=== PATIENT | female | born 1955 | race Caucasian/White ===

== ENCOUNTER → 2020-12-04 07:48 | Outpatient (CLI) | payer MEDICARE, BC ==
--- NOTE | 2020-12-05 09:24 | EC ---
PATIENT:AMAURY CARTER DATE OF SERVICE: 12/04/20 SEX: F MEDICAL RECORD: [id number] DATE OF : [birth year] LOCATION:D[facility] AGE OF PATIENT: 65 ADMISSION DATE: 12/04/20 REFERRING PHYSICIAN: INTERPRETING PHYSICIAN: VIRGILIO ALVARADO MD ECHOCARDIOGRAM REPORT ECHO CHARGES 4 ECHO COMPLETE Date: 12/04/20 CLINICAL DIAGNOSIS: HEART MURMUR ECHOCARDIOGRAPHIC MEASUREMENTS (adult normal given) AC root (d.<3.7cm) 3.6 cm LV Septum d (<1.2 cm> 1.3 cm Valve Excursion 1.7 cm LV Septum (systole) 1.5 cm Left Atria (s.<4.0cm> 4.7 cm LVPW d(<1.2cm) 1.6 cm RV (d.<2.3cm) 4.7 cm LVPW (sytole) 1.7 cm LV diastole(<5.6CM) 7.6 cm MV E-F(>70mm/sec) cm LV systole 6.6 cm LVOT Diameter 1.9 cm MV exc.(>10mm) 1.4 cm Est.ejection fraction (50-75%) % DOPPLER: LVIT cm/sec A 37.0 cm/sec E 91.0 cm/sec LA cm/sec RVSP 51 mmHg LVOT 78 cm/sec AOP1/2T 915 m/s Asc. Ao 133 cm/sec RVOT 60 cm/sec RA cm/sec PA 91 cm/sec AV Gradient Peak 7.07 mmHg AV Mean 3.37 mmHg AV Area 1.7 cm MV Gradient Peak 5.34 mmHg MV Mean 1.74 mmHg MV Area cm COMMENTS: Autocad Technician: 2 TEVIN AGGARWAL Protection Mgr: 3 Dr. Clarke TAPE# PACS Pericardial Effusion N DATE OF SERVICE: Adequate 2D, color flow imaging, spectral Doppler, and M-Mode. FINDINGS: LVH is present. LV internal dimension is dilated. LV is severely globally hypokinetic with reduced EF, estimated EF 15%. Aortic valve sclerosed without stenosis by Doppler interrogation. Mild AI is noted as well. Left atrium is dilated at 4.7 cm. Mitral valve shows no prolapse. Moderate MR. Right-sided chamber is grossly normal. Moderate TR. ECHOCARDIOGRAM REPORT [id number] AMAURY CARTER TRANSINT:[id number] Voice Confirmation ID: [id number] DOCUMENT ID: [id number] VIRGILIO ALVARADO MD at 0924 CC: [id number] DICTATION DATE: 12/04/201699 LEAD OXIDE MILL TENDER: 12/04/20 1748 DEP CLI 12/04/20 [place] [id number] [place] [id number]
--- NOTE | 2020-12-05 09:25 | ST ---
PATIENT:AMAURY CARTER MEDICAL RECORD: [id number] SEX: F LOCATION:[facility] ORDER #: ADMISSION DATE: 12/04/20 AGE OF PATIENT: 65 REFERRING PHYSICIAN: INTERPRETING PHYSICIAN: VIRGILIO ALVARADO MD DATE OF SERVICE: 12/04/2020 NUCLEAR STRESS TEST GATED: Gated is abnormal with decreased thickening in a global fashion with more marked anterior basically akinesis with reduced EF of 13%. SPECT IMAGING: Short axis view shows an extensive fixed defect from the mid anterior wall down to the anterior apex. There is a reversible defect from the inferior base down to the inferior apex. Horizontal axis: Horizontal axis confirms an extensive anterior defect from mid anterior wall down the anterior apex as well as reversible defect from the inferior base down the mid inferior wall involving the inferior apex. Vertical axis: Vertical axis shows a good uptake along the lateral septum. FINAL IMPRESSION: 1. Abnormal gated with abnormal wall motion, reduced EF 13%. 2. Abnormal SPECT imaging with a fixed anterior defect as well as reversible defect along the inferior wall. FINAL IMPRESSION: This scan is consistent with severe ischemic cardiomyopathy. We would recommend diagnostic angiography at this point. TRANSINT:[id number] Voice Confirmation ID: [id number] DOCUMENT ID: [id number] VIRGILIO ALVARADO MD at 0925 CC: [id number] DICTATION DATE: 12/04/20 165 PUNCHBOARD FILLING MACHINE OPERATOR: 12/05/20 0707 [facility] CLI 12/04/20 [place] [id number] [place] [address]
== END | disposition home or self-care (01) ==
LOC: D.HCCECHO 07:48
PROVIDERS: ATTEND Internal Medicine Interventional Cardiology
DX: R01.1 Cardiac murmur, unspecified (principal); I20.9 Angina pectoris, unspecified

== ENCOUNTER 2020-12-11 11:22 | Day surgery (SDC) | payer MEDICARE, BC ==
[~2020-12-11] VITALS: Ht 162.6 cm; Wt 100.5 kg
--- NOTE | ~2020-12-11 | HEMODYNAMI ---
PATIENT:AMAURY CARTER MEDICAL RECORD: [id number] : 51 LOCATION:[facility] ADMISSION DATE: 12/11/20 Generatedon:113:18 Patient name: AMAURY CARTER Patient #: [id number] SSN: : 1955 Date of study: 12/11/2020 Page: Of Hemodynamic Procedure Report Patient Data Patient Demographics Procedure consent was obtained First Name: AMAURY Gender: Female Last Name: RAUL : 1955 Patient #: [id number] Age: 65 year(s) Race: Unknown Additional ID: [id number] Contact details Address: [address] [place] [address] State: [place] City: [facility] Zip code: [address] Past Medical History Performed procedures and imaging results Date Procedure Procedure Results Comments Stress testing Positive->Intermediate with SPECT MPI risk Allergies Allergen Reaction Date Comments Reported Other allergy 12/11/2020 ADHESIVE TAPE, CLINDAMYCIN, ROCEPHIN, SILK Admission Admission Data Admission Date: 12/11/2020 Admission Time: 11:22 Arrival Date: 12/11/2020 Arrival Time: 0:00 Admit Source: Other Height (in.): 63.78 BSA: 2.03 (m2) Height (cm.): 162 BMI: 38.1 (kg/m2) Weight (lbs.): 220.46 Weight (kg.): 100 Lab Results Lab Result Date: 12/11/2020 Lab Result Time: 0:00 Biochemistry Name Units Result Min Max BUN mg/dl 34 --(----)-* 7 18 Creatinine mg/dl 1.3 --(---*)-- 0.6 1.3 eGFR ml/min 43 *-(----)-- 90 120 NONAFRICAN CBC Name Units Result Min Max Hematocrit % 40.7 -*(----)-- 42 54 Hemoglobin g/dl 13.3 -*(----)-- 13.5 17.5 Procedure Procedure Types Cath Procedure Diagnostic Procedure [facility] w/Coronaries Procedure Description Procedure Date Procedure Date: 12/11/2020 Procedure Start Time: 13:06 Procedure End Time: 13:16 Procedure Staff Name Function Steve Hatfield MD Performing Physician Cherelle Lopez RT Monitor Mica Serrano, RN Nurse Les Hernandez RT Scrub Procedure Data Cath Procedure Fluoroscopy Diagnostic fluoroscopy Total fluoroscopy Time: 1.1 time: 1.1 min min Diagnostic fluoroscopy Total fluoroscopy dose: 480 dose: 480 mGy mGy Contrast Material Contrast Material Type Amount (ml) Isovue 300 55 Entry Location Entry Primary Successful Side Size Upsize Upsize Entry Closure Succes sful Closure Location (Fr) 1 (Fr) 2 (Fr) Remarks Device Remarks Femoral Right 5 Fr Exoseal artery Estimated blood loss: 5 ml Diagnostic catheters Device Type Used For End Catheter Placement MULTIPACK JL 4.0 5Fr Procedure catheter MULTIPACK 3DRC 5Fr Procedure catheter MULTIPACK Pigtail 5 Fr Procedure catheter Procedure Complications No complications Procedure Medications Medication Administration Route Dosage Oxygen etCO2 Nasal cannula 2 l/min Heparin Flush Bag added to field 2 bags (1000units/500ml NS) Lidocaine 2% 0.9% NaCl I.V. 100 ml/hr Fentanyl I.V. 50 mcg Versed I.V. 1 mg Hemodynamics Rest BSA: 2.03 (m2) O2 Consumption: Estimated: 194.21 (ml/min) O2 Consumption indexed : Estimated:95.67 (ml/min/m) Heart Rate: 77 (bpm) Pressure Samples Time Site Value (mmHg) Purpose Heart Use Rate(bpm) 13:12 LV 106/23,27 Snapshot 85 Snapshots Pre Cath Intra NCS Post Cath Vital Signs Time Heart Resp SPO2 etCO2 NIBP (mmHg) Rhythm Pain Sedation Rate (ipm) (%) (mmHg) Status Level (bpm) 13:00:16 85 28 98 29.2 108/80(101) NSR 0 (11) 10(A) , No pain 13:04:28 79 26 97 29.2 109/76(94) NSR 0 (11) 10(A) , No pain 13:08:42 80 18 92 28.5 106/69(91) NSR 0 (11) 9(A) , No pain 13:12:52 83 15 98 27 100/73(78) NSR 0 (11) 9(A) , No pain 13:16:23 62 30 99 32.2 107/69(87) NSR 0 (11) 9(A) , No pain Medications Time Medication Route Dose Verified Delivered Reason Notes Eff ectiveness by by 12:57:04 Oxygen etCO2 2 Mica Mica for low 02 Nasal l/min Maggie Serrano, sats cannula RN RN 12:57:13 Heparin Flush added 2 Mica Mica used for Bag to bags Maggie Serrano, procedure (1000units/500ml field RN RN NS) 12:57:40 Lidocaine 2% Mica Mica for local Maggie Serrano, anesthetic RN RN 12:57:49 0.9% NaCl I.V. 100 Mica Mica Per ml/hr Maggie Serrano, physician RN RN 13:06:40 Fentanyl I.V. 50 Mica Mica for mcg Maggie Serrano, sedation RN RN 13:06:45 Versed I.V. 1 mg Mica Mica for Maggie Serrano, sedation RN tour consultant Log Time Note 12:26:11 Patient Height : 63.78 inches 12:26:18 Patient Weight : 220.46 lbs 12:26:51 Admit Source: Other 12:27:25 ACC Patient presents with Stable Angina CCS Anginal Class 2--Slight limitation of ordinary activity. 12:27:28 Procedure Status Elective Heart Cath (OP). 12:37:46 Mica Serrano RN sent for patient. Start room use. 12:37:48 Time tracking: Regular hours (M-F 7:00 - 5:00) 12:37:53 Plan of Care:Hemodynamics will remain stable., Cardiac rhythm will remain stable., Comfort level will be maintained., Respiratory function will remain adequate., Patient/ family verbilizes understanding of procedure., Procedure tolerated without complication., Recovers from procedure without complications.. 12:38:09 H&P Date Dictated: 11/20/2020 Within 30 days and on chart., H&P Addendum completed by physician on day of procedure. (MUST COMPLETE FOR ALL OUTPATIENTS). 12:40:18 Patient allergic to Other allergyADHESIVE TAPE, CLINDAMYCIN, ROCEPHIN, SILK 12:42:53 Lab Result : Creatinine 1.3 mg/dl 12:42:53 Lab Result : BUN 34 mg/dl 12:42:53 Lab Result : eGFR NONAFRICAN 43 ml/min 12:42:53 Lab Result : Hematocrit 40.7 % 12::53 Lab Result : Hemoglobin 13.3 g/dl 12:42:57 Lab results completed and on chart. 12:43:14 Arrival Date: 12/11/2020 12:00:00 AM 12:46:42 Stress Test: yes; abnormal ANTERIOR AND INFERIOR 12:47:10 Informed consent obtained and on chart 12:47:19 ACC Patient presents with Unstable Angina CCS Anginal Class 3--Marked limitation of physical activity, angina occurs with ordinary activity.. 12:53:23 Patient received from Pre/Post Procedure Room to CCL 1 Alert and oriented. Tansferred to table in Supine position. 12:53:24 Warm blankets applied, and jacob hugger turned on for patient comfort. 12:53:24 Correct patient and procedure confirmed by team. 12:53:25 ECG and BP/O2 sat monitors applied to patient. 12:57:04 Oxygen 2 l/min etCO2 Nasal cannula was administered by Mica Serrano RN; for low 02 sats; Verbal order read back and verified. 12:57:13 Heparin Flush Bag (1000units/500ml NS) 2 bags added to field was administered by Mica Serrano RN; used for procedure; Verbal order read back and verified. 12:57:40 Lidocaine 2% was administered by Mica Serrano RN; for local anesthetic; Verbal order read back and verified. 12:57:49 0.9% NaCl 100 ml/hr I.V. was administered by Mica Serrano RN; Per physician; Verbal order read back and verified. 12:59:09 Vital chart was started 12:59:12 Baseline sample Acquired. 12:59:14 Rhythm: sinus rhythm 12:59:15 Full Disclosure recording started 12:59:15 Pre-procedure instructions explained to patient. 12:59:16 Pre-op teaching completed and patient verbalized understanding. 12:59:17 Family in patients room. 12:59:18 Patient NPO since Midnight. 12:59:20 Is the patient allergic to Iodine/contrast media? No. 12:59:21 Is patient on blood thinner?Yes 12:59:27 ACC The patient was administered the following blood thiners within the last 24 hours: Coumadin 12:59:46 HELD SINCE TUESDAY 12:59:48 Patient diabetic? Yes. 12:59:51 Patient not . Patient is over age 55. 12:59:56 Previous problem with sedation/anesthesia? No ? 12:59:57 Snore? Yes 12:59:58 Sleep apnea? No 12:59:59 Deviated septum? No 13:00:13 Opens mouth fully? Yes 13:00:14 Sticks out tongue? Yes 13:00:15 Airway obstruction? No ? 13:00:19 Dentures? No ? 13:00:22 Patient pain scale 0/10 ?. 13:00:29 IV patent on arrival in left antecubital with 0.9% NaCl at [facility]. 13:00:33 Right groin area was prepped with chlora-prep and draped in sterile fashion 13:00:34 Alarms reviewed by R. N. 13:00:35 Sharps counted by scrub and verified by R.N. 13:00:37 Use device set Femoral Dx 13:00:39 ACIST Syringe (46596) opened to sterile field. 13:00:39 Bag Decanter (2002S) opened to sterile field. 13:00:40 ACIST Hand Control (91263) opened to sterile field. 13:00:40 ACIST Manifold (12438) opened to sterile field. 13:00:41 Tegaderm 4 x 4 (1626W) opened to sterile field. 13:00:43 Medline Cath Pack ([id number]) opened to sterile field. 13:00:44 DIAGNOSTIC Multipack 5Fr catheter set (YN3051) opened to sterile field. 13:00:45 SHEATH 5FR [place] (YBY259) opened to sterile field. 13:00:45 EMERALD Guide Wire (502-943) opened to sterile field. 13:02:55 Zero performed for pressure channel P1 13::57 --------ALL STOP TIME OUT------ 13:02:58 Final Timeout: patient, procedure, and site verified with staff and physician. All members of the team are in agreement. 13:02:59 Right groin site verified by team. 13:03:02 Fire Safety Assessment: A--An alcohol-based skin anteseptic being used preoperatively., C--Open oxygen or nitrous oxide is being used., D--An ESU, laser, or fiber-optic light is being used. 13:03:05 Physical assessment completed. ASA score P 2 - A patient with mild systemic disease as per Steve Hatfield MD. 13:03:10 3b) 30-44 Moderately reduced kidney function. 13:03:13 Maximum allowable contrast dose (3.7 X eGFR X 0.75)119 ml. 13:03:16 Sedation plan: IV Moderate Sedation Medication:Versed, Fentanyl 13:06:20 Procedure started. 13:06:26 Local anesthetic to right femoral artery with Lidocaine 2% by Steve Hatfield MD.INITIAL ACCESS ONLY 13:06:40 Fentanyl 50 mcg I.V. was administered by Mica Serrano RN; for sedation; Verbal order read back and verified. 13:06:45 Versed 1 mg I.V. was administered by Mica Serrano RN; for sedation; Verbal order read back and verified. 13:08:11 A 5 Fr sheath was inserted into the Right Femoral artery 13:08:29 A MULTIPACK JL 4.0 5Fr catheter was advanced over the wire and used for Procedure. 13:09:55 LCA angiography performed. 13:09:56 Catheter removed. 13:10:01 A MULTIPACK 3DRC 5Fr catheter was advanced over the wire and used for Procedure. 13:11:05 RCA angiography performed. 13:11:06 Catheter removed. 13:11:11 ACCDominant side:Right 13:11:17 A MULTIPACK Pigtail 5 Fr catheter was advanced over the wire and used for Procedure. 13:12:45 LV gram done using MOONEY 13:12:47 Injector settings: Ml/sec: 10, Volume: 20, 13:12:49 LV hemodynamics recorded. 13:12:55 EF : 20 % 13:12:57 Catheter removed. 13:13:02 EXOSEAL 5Fr (EX500) opened to sterile field. 13:13:27 Sheath removed intact; hemostasis achieved with Exoseal to the Right Femoral artery. 13:13:39 Procedure ended.(Physican Out) 13:13:57 Fluoroscopy time 01.10 minutes. 13:14:01 Fluoroscopy dose: 480 mGy 13:14: Flurop Dose total: 480 13:14:07 Dose Area Product 83451 mGy/cm. 13:14:10 Contrast amount:Isovue 300 55ml. 13:14:13 Maximum allowable dose exceeded? No. 13:14:15 Sharps counted by scrub and verified by R.N. 13:14:19 Post-op/insertion site Right Femoral artery dressed using a 4 x 4 and Tegaderm. 13:14:21 Post-procedure physical assessment completed. ASA score P 2 - A patient with mild systemic disease as per Steve Hatfield MD. 13:14:24 Post procedure rhythm: unchanged. 13:14:27 Estimated blood loss: 5 ml 13:16:00 Post procedure instruction explained to patient.Patient verbalizes understanding. 13:16:00 Patient needs reinforcement of post procedure teaching. 13:16:23 Procedure and supply charges have been captured, reviewed, submitted and are correct. 13:16:26 Procedure Complication : No complications 13:16:28 Vital chart was stopped 13:16:29 [facility] Findings: mild to moderate CAD (<70%) 13:16:30 Operative report dictated upon procedure completion. 13:16:31 See physician's report for complete and final results. 13:16:33 Report given to Pre/Post Procedure Room. 13:16:35 Patient transfered to Pre/Post Procedure Room with Bed. 13:16:37 Procedure ended. 13:16:37 Full Disclosure recording stopped 13:16:41 End room use (Document Last) 13:17:55 End room use (Document Last) 13:18:23 End room use (Document Last) Device Usage Item Name Manufacture Quantity Catalog Hospital Part Current Minimal L ot# / Number Charge Number Stock Stock Serial# Code ACIST Acist 1 83103 [id number] 599461 177187 20 Syringe Medical (88237) Systems Inc Bag Microtek 1 2001S 100480 49818 787571 5 Decanter Medical Inc. () ACIST Hand Acist 1 08413 256770 959732 793065 5 Control Medical (75205) Systems Inc ACIST Acist 1 46609 048225 589291 388617 5 Manifold Medical (36426) Systems Inc Tegaderm 4 3M 1 1626W 705455 038485 717845 5 x 4 (1626W) Medline Medline 1 [id number] 510299 90395 798959 5 Cath Pack ([id number]) DIAGNOSTIC Cardinal 1 OD8553 905430 54775 839321 30 Multipack Health 5Fr catheter set (XL8990) SHEATH 5FR Terumo 1 FLQ222 162530 640973 605297 5 [place] (XLU860) EMERALD Cardinal 1 502-455 655950 943525 158274 5 Guide Wire [facility] (502-204) MULTIPACK Cardinal 1 366268 5 JL 4.0 5Fr Health catheter MULTIPACK Cardinal 1 293868 5 3DRC 5Fr [facility] catheter MULTIPACK Cardinal 1 119848 5 Pigtail 5 Health Fr catheter EXOSEAL 5Fr Cardinal 1 EX500 515219 499282 120696 10 (EX500) Health Signature Audit [place] Stage Time Signature Unsigned Intra-Procedure 12/11/2020 Cherelle Lopez 1:17:55 PM RT(R) Intra-Procedure 12/11/2020 Mica Serrano, 1:18:23 PM RN Intra-Procedure 12/11/2020 Steve Adhikari 1:18:46 PM Mauricio [facility] [address] [facility] [address]
[2020-12-11] MEDS ORDERED: AZULFIDINE500 MG PO (11:42)
[2020-12-11] MEDS ORDERED: KLOR-CON 1010 MEQ PO (11:42)
[2020-12-11] MEDS ORDERED: COZAAR50 MG PO (11:43)
[2020-12-11] MEDS ORDERED: HYDROCHLOROTH12.5 M1 PO (11:43)
[2020-12-11] MEDS ORDERED: WARFARIN SODIUM5 MG PO (11:43)
[2020-12-11] MEDS ORDERED: GLUCOPHAGE500 MG PO (11:44)
[2020-12-11] MEDS ORDERED: OMEPRAZOLE20 M1 PO (11:44)
[2020-12-11] MEDS ORDERED: PREDNISONE1 MG PO (11:44)
[2020-12-11] MEDS ORDERED: PRAVASTATIN SOD10 MG PO (11:45)
[2020-12-11] MEDS ORDERED: LEVOTHYROXINE150 MCG PO (11:45)
[2020-12-11] MEDS ORDERED: FOLIC ACID1 MG PO (11:45)
[2020-12-11] MEDS ORDERED: METHOTREXATE2.5 MG PO (11:46)
[2020-12-11] MEDS ORDERED: FUROSEMIDE40 MG PO (11:47)
[2020-12-11] MEDS ORDERED: HUMIRA SC (11:47)
[2020-12-11] MEDS ORDERED: [UNRECOGNIZED DRUG - OTHER] SC (11:47)
[2020-12-11] MEDS ORDERED: CALCIUM 600 +1 EAC3 PO (11:48)
[2020-12-11] MEDS ORDERED: FERROUS SULFAT325 MG PO (11:48)
[2020-12-11] MEDS ORDERED: MULTI-DAY VITAM1 TAB PO (11:48)
[2020-12-11] MEDS ORDERED: HYDROCODON-ACE1 EAC7 PO (11:49)
[2020-12-11 11:56] VITALS: BP 127/73; Ht 162.6 cm; Wt 100.5 kg
[2020-12-11 12:03] LABS: BASOPHILS 0.6 % (0-2); EOSINOPHILS 0.3 % (0-7); HEMATOCRIT 40.7 % (36.0-48.0); HEMOGLOBIN 13.3 g/dL (12-16); LYMPHOCYTES 11.2 % (15-50); MCH 32.4 pg (26.0-34.0); MCHC 32.6 g/dL (31.0-37.0); MCV 99.1 fL (80.0-100.0); MEAN PLATELET VOLUME 9.5 fL (7.4-10.4); MONOCYTES 9.1 % (2-11); NEUTROPHILS 78.8 % (40-80); PLATELET COUNT 217 10x3/uL (130-400); RDW 18.5 % (11.5-14.5); WBC 8.2 10x3/uL (4.8-10.8)
[2020-12-11 12:25] LABS: ANION GAP 15.7 mmol/L (8-16); CALCIUM 7.1 mg/dL (8.5-10.1); CARBON DIOXIDE 28.3 mmol/L (21.0-32.0); CHOL - HDL RATIO 2.1 ratio (2.3-4.1); CREATININE - SERUM 1.3 mg/dL (0.6-1.3); LDL-HDL RATIO 0.8 ratio (1.5-3.5)
[2020-12-11 13:07] LABS: INR 1.9 (0.85-1.17); PROTIME 20.2 SECONDS (11.6-15.0)
--- NOTE | 2020-12-11 13:25 | NUR ---
PT ARRIVED BY STRETCHER. PLACED ON MONITORS. ASSESSMENT COMPLETED. VSS AT THIS TIME. CALL LIGHT WITHIN REACH. FAMILY AT BEDSIDE. DR. ALVARADO ROUNDED AND SPOKE WITH PT'S .
--- NOTE | 2020-12-11 13:40 | NUR ---
PT RESTING COMFORTABLY. VSS AT THIS TIME. RIGHT GROIN DRESSING C/D/I. NO S/S OF HEMATOMA NOTED. FAMILY AT BEDSIDE. VSS.
[2020-12-11] MEDS ORDERED: LANOXIN125 MCG PO (13:58)
[2020-12-11] MEDS ORDERED: ALDACTONE25 MG PO (13:58)
--- NOTE | 2020-12-11 14:08 | NUR ---
RX FOR DIGOXIN 0.125 AND ALDACTONE 25MG CALLED IN TO PT'S PHARMACY PER PT'S HUSBANDS REQUEST. SPOKE WITH LISA AT [facility] IN [place] PER THERE REQUEST.
--- NOTE | 2020-12-11 14:30 | NUR ---
RIGHT GROIN DRESSING C/D/I. NO S/S OF HEMATOMA NOTED. CALL LIGHT WITHIN REACH. VSS AT THIS TIME. PT'S HEAD OF BED INC TO 30 DEGREES. TOLERATED WELL. SET UP WITH SANDWICH TRAY AND DRINK. DENIES NAUSEA/PAIN.
--- NOTE | 2020-12-11 14:57 | NUR ---
RIGHT GROIN DRESSING C/D/I. NO S/S OF HEMATOMA NOTED. PIV D/C'D WITH CATH TIP INTACT. TOLERATED WELL. DISCUSSED DISCHARGE INSTRUCTIONS WITH PT AND PT'S FAMILY. THEY VOICED UNDERSTANDING.
--- NOTE | 2020-12-11 15:10 | NUR ---
PT INSTRUCTED TO GET UP AND DRESSED AT THIS TIME. FAMILY AT BEDSIDE TO ASSIST. RIGHT GROIN DRESSING C/D/I. NO S/S OF HEMATOMA NOTED. CALL LIGHT LEFT WITHIN REACH.
--- NOTE | 2020-12-11 15:20 | NUR ---
PT AMBULATED TO RESTROOM. VOIDED WITHOUT DIFFICULTY. STEADY GAIT NOTED. PT TAKEN OUT TO VEHICLE BY WHEELCHAIR. NO S/S OF DISTRESS NOTED. ALL BELONGINGS AND PAPERWORK IN HAND. RIGHT GROIN DRESSING C/D/I. NO S/S OF HEMATOMA NOTED.
--- NOTE | 2020-12-12 11:18 | OP ---
PATIENT NAME: AMAURY CARTER MEDICAL RECORD: [id number] :51 LOCATION:D.[facility] ADMISSION DATE: SURGEON: VIRGILIO ALVARADO MD DATE OF OPERATION: 12/11/2020 PROCEDURE: Left heart catheterization, selective coronary angiography, right femoral artery approach. CATHETERS: A 5-Dominican sheath, 5/4 left and right Kale, 5/4 pig. The procedure was well tolerated. The patient was returned to the [place]. Sheath removed. ExoSeal device was placed. FINDINGS: Left ventriculography in 30-degree MOONEY view shows severe global hypokinesis, reduced EF, estimated at 20%. CORONARY ANATOMY: LEFT MAIN: Left main is free of disease. LAD: Free of disease in the diagonal system. CIRCUMFLEX: Free of disease in the marginal system. RIGHT CORONARY ARTERY: Dominant right artery, gives rise to PDA, free of disease. IMPRESSION AND PLAN: Nonischemic cardiomyopathy, pressure is running 110, currently going to add low dose digoxin 0.125 as well as Aldactone 25 mg every day. Certainly, would like to add Entresto and/or carvedilol in the near future. If blood pressure continues to be marginal, certainly we would consider Farxiga at that point. Further recommendations based on the above. TRANSINT:[id number] Voice Confirmation ID: [id number] DOCUMENT ID: [id number] VIRGILIO ALVARADO MD at 1118 CC: [id number] DICTATION DATE: 12/11/20 1317 TEMPORARY OFFICE ASSISTANT: 12/11/20 1445 [facility] 12/11/20 [place] [id number] [place] [address]
== END 2020-12-11 15:20 | disposition home or self-care (01) ==
LOC: D.CATH 11:22
PROVIDERS: ATTEND Internal Medicine Interventional Cardiology
DX: I20.9 Angina pectoris, unspecified (principal); R94.39 Abnormal result of other cardiovascular function study; I51.7 Cardiomegaly; I10 Essential (primary) hypertension; E78.5 Hyperlipidemia, unspecified; E11.9 Type 2 diabetes mellitus without complications; R01.1 Cardiac murmur, unspecified